=== PATIENT | female | born 1980 | race Caucasian/White ===

== ENCOUNTER → 2019-11-07 | Outpatient (CLI) | payer OTHER ==
[2016-12-12 00:37] VITALS: BP 127/58
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
== END | disposition home or self-care (01) ==
LOC: PMG 16:38
PROVIDERS: ATTEND Registered Nurse
DX: M89.8X1 Other specified disorders of bone, shoulder (principal); R07.9 Chest pain, unspecified
CPT/HCPCS: 71046; 73000